=== PATIENT | female | born 1955 | race Caucasian/White ===

== ENCOUNTER 2017-07-29 14:00 | Outpatient (RCR) | payer BC, SELFPAY ==
--- NOTE | 2017-07-29 13:27 | HP.PTEVAL_ITS ---
Patient's Visit Information ELICEO ALMANZA is a 62 year old F referred to Physical Therapy by Rosemarie Tamayo DPM with a diagnosis of L Plantar fascitis and peronal tendonitis. Date of Evaluation: 07/29/17 Physical Therapist: Becki Gant - Visit Plan Frequency: 1x/Week Duration: 4 Weeks Plan: 1X/ week for 4 weeks with HEP per pt request as PT is all out of pocket for this pt to increase L ankle strengthe and stability, increase L ankle AROM, increase gait and decrease pain with HEP. Possible Dry needling if other treatment does not work. - Subjective Subjective: Pt has been dealing with the L foot pain for a couple of years. She has always been able to walk it off but recently she has not been able to walk it off. She has been doin EPAT X 3 treatments and today she is better but some days are good and some days are bad. Currently the back of the heel is achy. She is doing the blue band strengthening, toe curling, and stretching against the wall. She has been doin gthe exercises since JUN 24. She has not had a cortizone injection. She can generally walk 20-25 min before she has to sit down. She was in pain mowing lawn doingit in 40 min. She is wearing the night splint. 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 First few steps out of bed in the morning are painful but better with the splint. - Pain L heel pain Pain Intensity (Out of 10): 2 Plantar fascia pain Pain Intensity (Out of 10): 0 - Objective Gait: Decrease stance time on the L, decrease DF on the L, increase L hindfoot eversion. Heel and toe raises...increase pain with toe raise on the L and decreased balance. Hard to tell of pt has increased PF weakness or due to poor balance. L ankle DF 8 degrees, PF 50 degrees. R ankle DF 10 degrees, PF 55 degrees. Palpation: Tender along the Peroneal tendon on the L and at the heel on the L - Goals Goal 1:: I HEP Goal Time Frame: 4-6 Weeks Goal 2:: Decrease L heel and foot pain to 1/10 with gait. Goal Time Frame: 4-6 Weeks Goal 3:: Increase L ankle DF with gait and increase L ankle DF to 10 degrees to equal that of the R. Goal Time Frame: 4-6 Weeks Goal 4:: Be able to return to work with 1/10 ankle pain by the end of the work day. Goal Time Frame: 4-6 Weeks - Rehabilitation Potential Rehabilitation Potential: Good - Anticipated Interventions Patient/Client Instruction: Educate patient on: Plan of Care For the Purpose of:: To decrease pain, To decrease swelling/inflammation, To increase ROM, To improve nutrient delivery to tissue, To improve muscle performance and motor function, To improve ability to perform ADL's, To increase tolerance to activity/condition/position, To improve performance and independence with ADL's, To improve ability of physical actions for home/ community/work/leisure, To improve gait and locomotor functions, To improve health of tissue, To decrease soft tissue restriction, To increase flexibility/ ROM Therapeutic Exercise to Include: Strength training, Balance training, Flexibilty training, Gait and locomotor training, Passive ROM, Active ROM For the Purpose of:: To decrease pain, To decrease swelling/inflammation, To increase ROM, To improve nutrient delivery to tissue, To improve muscle performance and motor function, To increase tolerance to activity/condition/ position, To improve performance and independence with ADL's, To improve gait and locomotor functions, To improve health of tissue, To decrease soft tissue restriction, To increase flexibility/ROM Manual Therapy Techniques to Include: Mobilization, Passive ROM, Functional dry needling, Soft tissue mobilization For the Purpose of:: To decrease pain, To decrease swelling/inflammation, To increase ROM, To improve nutrient delivery to tissue, To improve muscle performance and motor function, To improve ability to perform ADL's, To improve performance and independence with ADL's, To improve gait and locomotor functions , To improve health of tissue IF ES: Yes Ultrasound (thermal/non thermal): Yes For the Purpose of:: To decrease pain, To decrease swelling/inflammation, To increase ROM, To increase oxygenation perfusion, To improve muscle performance and motor function Thank you for the opportunity to evaluate your patient. For Medicare and Medicare HMO plans, please review the plan of care and approve it. It will need to be FAXED BACK to us at [phone] for Medicare purposes. Please let me know if there are questions or concerns regarding this plan of care. Physician Signature: Date:
--- NOTE | 2017-11-12 10:37 | HP.PTDCNRP_ITS ---
HP - Discharge Summary (1) - Patient Information ELICEO ALMANZA was seen in my office for initial evaluation on 07/29/17. The following Plan of Care was established for this patient: Initial Frequency: 1x/Week Initial Duration: 4 Weeks - Anticipated Interventions Patient/Client Instruction: Educate patient on: Plan of Care For the Purpose of:: To decrease pain, To decrease swelling/inflammation, To increase ROM, To improve nutrient delivery to tissue, To improve muscle performance and motor function, To improve ability to perform ADL's, To increase tolerance to activity/condition/position, To improve performance and independence with ADL's, To improve ability of physical actions for home/ community/work/leisure, To improve gait and locomotor functions, To improve health of tissue, To decrease soft tissue restriction, To increase flexibility/ ROM Therapeutic Exercise to Include: Strength training, Balance training, Flexibilty training, Gait and locomotor training, Passive ROM, Active ROM For the Purpose of:: To decrease pain, To decrease swelling/inflammation, To increase ROM, To improve nutrient delivery to tissue, To improve muscle performance and motor function, To increase tolerance to activity/condition/ position, To improve performance and independence with ADL's, To improve gait and locomotor functions, To improve health of tissue, To decrease soft tissue restriction, To increase flexibility/ROM Manual Therapy Techniques to Include: Mobilization, Passive ROM, Functional dry needling, Soft tissue mobilization For the Purpose of:: To decrease pain, To decrease swelling/inflammation, To increase ROM, To improve nutrient delivery to tissue, To improve muscle performance and motor function, To improve ability to perform ADL's, To improve performance and independence with ADL's, To improve gait and locomotor functions , To improve health of tissue IF ES: Yes Ultrasound (thermal/non thermal): Yes For the Purpose of:: To decrease pain, To decrease swelling/inflammation, To increase ROM, To increase oxygenation perfusion, To improve muscle performance and motor function This patient was last seen in our office 08/18/17. Pertinent comments regarding their Physical therapy will appear below: [facility] PT At this point I will be discontinuing this patient from physical therapy. I would be happy to see this patient again in the future if found appropriate by the physician. Thank you! Becki Gant
== END 2017-08-18 19:00 | disposition home or self-care (01) ==
LOC: PT 08-11 13:30
PROVIDERS: PCP Family Medicine; Visit Provider Podiatrist
DX: M72.2 Plantar fascial fibromatosis (principal); M76.72 Peroneal tendinitis, left leg
CPT/HCPCS: 97035; 97110; 97161

== ENCOUNTER 2022-07-13 15:39 | Emergency (ER) | payer MEDICARE, OTHER, SELFPAY ==
[2022-07-13 15:39] VITALS: BP 155/112; PULSE 117; RESP 15; TEMP 36.6; O2SAT 99; BMI 40.6
--- NOTE | 2022-07-13 16:11 | EDS_ITS ---
HPI History of Present Illness HPI Narrative: Patient presents with a left wrist injury that occurred today. Patient fell backwards and landed on her left wrist. Patient denies any head injury or loss of consciousness. Patient states her pain is sharp. Patient states it is worse with movement. Patient states it is better with rest. Patient denies any paresthesias or weakness. Patient denies any other injuries. Patient denies any head injury or loss of consciousness. Chief Complaint: Upper Extremity Injury Informant: patient Occured/Mechanism Mechanism/Context: Yes fall Onset/Context/Timing Onset: Today Context: Sudden Onset Timing: Continuous Quality of Pain: Sharp Location: Left wrist Worsened by: Movement Relieved by: Rest Associated Symptoms Associated Symptoms: Negative for Parasthesia, Weakness or Loss of Funtion PFSH PFSH Medical History no medical history no medical history Home Medications duloxetine 60 mg capsule,delayed release 60 mg PO DAILY 10/04/21 [History Last Taken Unknown] hydrocodone-acetaminophen 5-325mg 5mg-325mg 1 tab PO Q6H PRN PRN Pain 3 days #10 TABLETS 07/13/22 [Rx Last Taken Unknown] letrozole 2.5 mg tablet 2.5 mg PO DAILY 07/13/22 [History Last Taken Unknown] meloxicam 15 mg tablet 15 mg PO DAILY 07/13/22 [History Last Taken Unknown] Allergy/AdvReac Type Severity Reaction Status Date / Time No Known Allergies Allergy Verified 07/13/22 15:41 Surgical History H/O lumpectomy Social History Smoking Status: Never smoker ROS ROS ED Constitutional Constitutional ED: Denies chills or fever(s) Eyes Eyes: Denies blurry vision or change in vision ENT ENT ED: Denies rhinorrhea or sore throat Cardiovascular Cardiovascular: Denies chest pain or palpitations Respiratory/Chest Respiratory/Chest: Denies cough or dyspnea Gastrointestinal Gastrointestinal: Denies nausea or vomiting Genitourinary Genitourinary ED: Denies dysuria or hematuria Musculoskeletal Musculoskeletal: Denies back pain or neck pain Integumentary Denies abscess or rash Neurologic Neurologic: Denies headache(s) or weakness Allergic/Immunologic Allergic/Immunologic ED: Denies mouth swelling or urticaria EXAM Physical Exam Const Vital Signs: 07/13/22 15:39 Temperature 97.8 F Temperature Source Temporal Pulse Rate 117 H Respiratory Rate 15 Blood Pressure 155/112 H Blood Pressure Mean 126 Pulse Ox 99 Oxygen Delivery Method Room Air Positive well nourished, well developed and obese General Appearance ED: well developed and NAD Nutritional Appearance: obese HEENT Reports moist mucous membranes Neck full ROM and supple Extremity Extremity Narrative: There is tenderness and edema over the left wrist. There is no obvious deformity. There is no bony crepitance or step-off. Range of motion was limited in all motions of the left wrist secondary to pain. There is good range of motion of the left elbow. Strength is 5/5 in the radial, median, and ulnar areas. Sensation was intact to light touch in the radial, median, and ulnar areas. Radial pulses are equal bilaterally. General Extremety ED: Yes edema General Extremity: edema Neuro oriented x3, CN's II-XII intact bilaterally, moves all extremities, no focal motor deficits and no sensory deficits noted Sensorium / Orientation: alert Motor Exam: strength 5/5 throughout Psych mental status grossly normal Skin Trauma: no lacerations or abrasions MDM MDM MDM Narrative Medical decision making narrative: X-rays of the left wrist were obtained. There are 3 views. On my interpretation, there is a mildly impacted nondisplaced distal radius fracture. There is no associated ulnar fracture. Radiologist also interpreted the x-rays and agrees. Case was discussed with Dr. Pio Cummings from orthopedics. He recommended an AP splint. He will follow-up with the patient in the office. Patient was placed in a well-padded custom made AP splint using 3 inch Ortho- Glass. Neurovascular exam was intact before and after the procedure. Patient was instructed to ice and elevate the left wrist. Patient was instructed to return if worse in any way. Patient was given a prescription for [place]. Patient understood and was agreeable with the plan. All questions were answered. Procedures Upper Extremity Splints Upper Extremity Splint: Orthoglass and Volar (AP splint) Splint Fabrication: Fabricated Location: Left Discharge Plan Triage Chief Complaint: Upper Extremity Injury ED Provider: Jason Loaiza Dx/Rx/DC Orders Clinical Impression: Closed fracture of distal end of left radius Instructions: ED Fracture, Upper Extremity Prescriptions: New hydrocodone-acetaminophen [hydrocodone-acetaminophen] 1 TABLET tablet 1 tab PO Q6H PRN PRN (Reason: Pain) 3 Days Qty: 10 0RF No Action duloxetine 60 mg capsule,delayed release(DR/EC) 60 mg PO DAILY Label Comments: Take 1 capsule by mouth daily meloxicam 15 mg tablet 15 mg PO DAILY Label Comments: TAKE 1 TABLET BY MOUTH ONCE DAILY WITH FOOD letrozole 2.5 mg tablet 2.5 mg PO DAILY Label Comments: TAKE 1 TABLET BY MOUTH ONCE DAILY Primary Care Provider: Ana Ibarra Referrals: Ana Ibarra MD [Primary Care Provider] - 1-2 Weeks Pio Cummings MD [Med Staff - Active Staff] - 3-5 Days Disposition Disposition: Home, Self Care
--- NOTE | 2022-07-13 16:20 | RAD_ITS ---
STUDY: X-RAY - LEFT WRIST REASON FOR EXAM: Female, 67 years old. Injury/Pain TECHNIQUE: 3 view(s) of the wrist were obtained. COMPARISON: None. FINDINGS: Normal visualized distal ulna. There is mild impaction of the distal radius with mild overlapping of fracture fragments. Normal radiocarpal articulation. Normal distal radioulnar articulation. Normal carpal bones. Normal carpal articulations. Normal carpometacarpal articulation of the thumb. Normal second through fifth carpometacarpal articulations. Normal visualized metacarpal bones. Diffuse soft tissue swelling of the dorsal surface of the wrist.. RAD/Wrist min 3 Views IMPRESSION: Mildly impacted distal radial fracture.. Electronically Signed: Alex Pina MD at 17:01 EDT ,
[2022-07-13 18:27] VITALS: RESP 16
== END 2022-07-13 18:47 | disposition home or self-care (01) ==
PROVIDERS: Emergency Provider Emergency Medicine; PCP Family Medicine; Visit Provider Emergency Medicine
DX: S52.502A Unspecified fracture of the lower end of left radius, initial encounter for closed fracture (principal); W19.XXXA Unspecified fall, initial encounter; E66.9 Obesity, unspecified; Z79.1 Long term (current) use of non-steroidal anti-inflammatories (NSAID); Z79.899 Other long term (current) drug therapy
CPT/HCPCS: 29125; 73110; 99282

== ENCOUNTER → 2023-09-25 | Outpatient (CLI) | payer MEDICARE, OTHER, SELFPAY ==
--- NOTE | 2023-09-25 10:12 | MRI_ITS ---
HISTORY: Lumbar facet arthropathy, pain low back into anterior right leg. TECHNIQUE: Multiplanar and multisequence MR images of the lumbar spine were obtained without intravenous contrast. 120 images. COMPARISON: None. FINDINGS: VERTEBRAE: Vertebral body heights maintained. Small Schmorl''s nodes at the T12 superior endplate. Small hemangioma incidentally noted in the L1 vertebral body. Mild degenerative bone marrow endplate changes of L4-5 and L5-S1. ALIGNMENT: No anterior or posterior subluxation. CONUS: Normal morphology and position of the conus medullaris at the lower L1 level. INTERVERTEBRAL DISCS: T12-L1: No significant posterior disc protrusion, central canal stenosis, or foraminal narrowing based on the sagittal images. L1-2: No significant posterior disc protrusion, central canal stenosis, or foraminal narrowing. Facet arthropathy. L2-3: Mild disc bulge and facet arthropathy without significant central canal stenosis or foraminal narrowing. L3-4: Very mild disc bulge and facet arthropathy without significant central canal stenosis or foraminal narrowing. L4-5: 9 mm long left paracentral disc extrusion with superior migration and facet arthropathy resulting in mild central canal stenosis and mild bilateral foraminal narrowing. L5-S1: Mild posterior disc bulge osteophyte complex with facet arthropathy resulting in no significant central canal stenosis and mild bilateral foraminal narrowing. SOFT TISSUES: Mild posterior subcutaneous edema. MRI/Spine Lumbar (Routine) IMPRESSION: Degenerative disc disease resulting in mild lumbar spinal canal stenosis and foraminal narrowing as above. Electronically Signed: Ana Lowe MD at 11:51 EST ,
== END | disposition home or self-care (01) ==
PROVIDERS: Referring Provider Clinical Nurse Specialist Adult Health; Visit Provider Clinical Nurse Specialist Adult Health
DX: M47.816 Spondylosis without myelopathy or radiculopathy, lumbar region (principal); M51.36 Other intervertebral disc degeneration, lumbar region
CPT/HCPCS: 72148

== ENCOUNTER → 2024-12-24 | Outpatient (CLI) | payer MEDICARE, OTHER, SELFPAY ==
--- NOTE | 2024-12-24 09:30 | MRI_ITS ---
EXAM: MRI lumbar spine without IV contrast CLINICAL HISTORY: Pain, radiculopathy COMPARISON: 11/29/2024 TECHNIQUE: Multisequence multiplanar MR images of the lumbar spine were obtained without the administration of intravenous contrast. FINDINGS: Vertebral body heights are within normal limits. Negative for fracture or marrow replacement. Degenerative grade 1 anterolisthesis of L4-5. Trace retrolisthesis of L5-S1. Conus medullaris is within normal limits and terminates at L1. Bulky uterus only visualized on [employer] images. Otherwise, no paraspinal mass. Moderate paraspinal muscle atrophy. Moderate hiatal hernia. L1-2: No focal disc abnormality, spinal stenosis or foraminal narrowing. Mild bilateral facet arthrosis. L2-3: Posterior disc bulge. Mild bilateral facet arthrosis. No significant spinal stenosis or foraminal narrowing. L3-4: Minimal posterior disc bulge. Moderate bilateral facet arthrosis. No significant spinal stenosis or foraminal narrowing. L4-5: Grade 1 anterolisthesis with uncovering of the posterior disc. Superimposed broad-based left central disc extrusion measuring 5 x 15 mm (AP and TV dimensions) demonstrating 9 mm of cranial migration. Moderate/severe bilateral facet arthrosis. Mild/moderate circumferential spinal stenosis with narrowing of the left lateral recess. Mild left and mild/moderate right foraminal narrowing. L5-S1: Posterior disc bulge eccentric to the left. Mild bilateral facet arthrosis. No significant spinal stenosis. Mild bilateral foraminal narrowing. MRI/Spine Lumbar (Routine) IMPRESSION: 1. Acquired mild/moderate spinal stenosis at L4-5. No other significant spinal stenosis. 2. Acquired multilevel mild to mild/moderate foraminal narrowing. See level by level comments above. 3. Degenerative grade 1 anterolisthesis of L4-5. 4. Bulky heterogeneous uterus visualized on [employer] images. Recommend further ev aluation width dedicated ultrasound. Reading Location: [facility]
== END | disposition home or self-care (01) ==
LOC: MRI 10:06
PROVIDERS: PCP Family Medicine; Referring Provider Student in an Organized Health Care Education/Training Program; Visit Provider Student in an Organized Health Care Education/Training Program
DX: M48.062 Spinal stenosis, lumbar region with neurogenic claudication (principal); M43.16 Spondylolisthesis, lumbar region
CPT/HCPCS: 72148